=== PATIENT | female | born 1990 ===

== ENCOUNTER 2022-05-15 11:35 | Inpatient (IN) | payer BC ==
[2022-05-15] MEDS ORDERED: Butorphanol 1 MG/ML SDV IVPUSH PRN (13:28)
[2022-05-15] MEDS ORDERED: Tranexamic Acid 1,000 MG in Sodium Chloride 0.9% 100 ML IV PRN (13:28)
[2022-05-15] MEDS ORDERED: Sodium Chloride 0.9% 20 ML SDV IV PRN (13:28)
[2022-05-15] MEDS ORDERED: Lidocaine 1% 50 ML MDV INJECT PRN (13:28)
[2022-05-15] MEDS ORDERED: Water For Irrigation,Sterile 1,000 ML Container IRR PRN (13:28)
[2022-05-15] MEDS ORDERED: Misoprostol 25 MCG (1/4 of 100 MCG) Tab VAG PRN ×2 (13:28)
[2022-05-15] MEDS ORDERED: Methylergonovine 0.2 MG/1 ML Amp IM PRN (13:28)
[2022-05-15] MEDS ORDERED: Misoprostol 200 MCG Tab PO PRN (13:28)
[2022-05-15] MEDS ORDERED: Terbutaline 1 MG/ML SDV SUBCUT PRN (13:28)
[2022-05-15] MEDS ORDERED: Carboprost Tromethamine 250 MCG/1 ML Amp IM PRN (13:28)
[2022-05-15] MEDS ORDERED: Sodium Chloride 0.9% 10 ML Syringe FLUSH PRN (13:28)
[2022-05-15] MEDS ORDERED: Sodium Chloride 0.9% 2.5 ML Syringe FLUSH PRN (13:28)
[2022-05-15] MEDS ORDERED: Oxytocin/0.9 % Sodium Chloride 30 UNIT/500 ML BAG IV SCH ×2 (13:30)
[2022-05-15] MEDS ORDERED: Lactated Ringers 1,000 ML IV SCH (13:30)
[2022-05-15] MEDS ORDERED: Ampicillin 2 GM in Sodium Chloride 0.9% 100 ML IV ONE (14:26)
[2022-05-15] MEDS ORDERED: ePHEDrine 50 MG/ML SDV IVPUSH PRN ×2 (16:21)
[2022-05-15] MEDS ORDERED: Phenylephrine HCl In 0.9% NaCl 1 MG/10 ML Vial IVPUSH PRN (16:21)
[2022-05-15] MEDS ORDERED: Phenylephrine HCl In 0.9% NaCl 1 MG/10 ML Vial IVPUSH SCH (16:30)
[2022-05-15] MEDS ORDERED: Ropivacaine HCl/PF 400 MG in Premix Bag 1 BAG EPIDUR SCH (16:30)
[2022-05-15 18:28] LABS: CARBON DIOXIDE,CO2 21.5 mmol/L (21.0-32.0); POTASSIUM,K 4.4 mmol/L (3.5-5.1)
[2022-05-15] MEDS: Ampicillin 1 GM in Sodium Chloride 0.9% 50 ML IV SCH ×2 (19:07→23:50)
[2022-05-16] MEDS ORDERED: Bisacodyl 10 MG Supp RECTAL PRN (01:21)
[2022-05-16] MEDS ORDERED: Witch Hazel Medicated Pads 40/Jar TOP PRN (01:21)
[2022-05-16] MEDS ORDERED: Docusate Sodium 100 MG Cap PO PRN (01:21)
[2022-05-16] MEDS ORDERED: oxyCODONE 5 MG Tab PO PRN (01:21)
[2022-05-16] MEDS ORDERED: Acetaminophen 500 MG Tab PO PRN ×2 (01:21)
[2022-05-16] MEDS ORDERED: Benzocaine/Menthol 20%-0.5% Spray 78 GM Cannister TOP PRN (01:21)
[2022-05-16] MEDS ORDERED: Lanolin 100% Cream 7 GM Tube TOP PRN (01:21)
[2022-05-16] MEDS ORDERED: Ibuprofen 400 MG Tab PO PRN (01:21)
[2022-05-16] MEDS: Ibuprofen 800 MG Tab PO PRN ×2 (08:32→19:55)
[2022-05-16] MEDS ORDERED: Bupivacaine 0.25% 10 ML SDV ONE (11:10)
== END 2022-05-17 09:45 | disposition home or self-care (01) | DRG 560 ==
LOC: MW.OBCHECK 11:35 → MW.OB 11:36 → MW.OBCHECK 13:25 → MW.OB 13:29 → OBSVTOIN 05-16 00:53 → MW.OB 05-16 03:29
PROVIDERS: ADMIT Obstetrics & Gynecology; ATTEND Obstetrics & Gynecology
PROC: 3E0R3BZ Introduction of Anesthetic Agent into Spinal Canal, Percutaneous Approach (ICD-10-PCS; 2022-05-15)
PROC: 00HU33Z Insertion of Infusion Device into Spinal Canal, Percutaneous Approach (ICD-10-PCS; 2022-05-15)
PROC: 10E0XZZ Delivery of Products of Conception, External Approach (ICD-10-PCS; principal; 2022-05-16)
PROC: 3E0P7VZ Introduction of Hormone into Female Reproductive, Via Natural or Artificial Opening (ICD-10-PCS; 2022-05-16)
DX: O99.824 Streptococcus B carrier state complicating childbirth (principal); O13.4 Gestational [pregnancy-induced] hypertension without significant proteinuria, complicating childbirth; O77.0 Labor and delivery complicated by meconium in amniotic fluid; O48.0 Post-term pregnancy; Z37.0 Single live birth; Z20.822 Contact with and (suspected) exposure to COVID-19; Z3A.40 40 weeks gestation of pregnancy; O99.52 Diseases of the respiratory system complicating childbirth; O99.344 Other mental disorders complicating childbirth; J45.909 Unspecified asthma, uncomplicated; F41.9 Anxiety disorder, unspecified; F32.A Depression, unspecified; Z88.2 Allergy status to sulfonamides
CPT/HCPCS: 36415; 59025; 59409; 80053; 82570; 82803; 84156; 84550; 85014; 85018; 85027; 86592; 86850; 86900; 86901; A9270-GY; J0290; J2590; J3490; J7120; U0002